=== PATIENT | male | born 1965 | race African-American/Black ===

== ENCOUNTER 2025-05-02 13:10 | Emergency (ER) | payer BC, SELFPAY ==
[2025-05-02 13:23] VITALS: BP 120/62; PULSE 66; RESP 16; TEMP 36.7; O2SAT 97
--- NOTE | 2025-05-02 13:56 | ED.GENADULT ---
HPI - General Adult General Chief complaint: Urogenital-Male Stated complaint: not able pee Time Seen by Provider: 05/02/25 14:05 Source: patient, RN notes reviewed and old records reviewed Mode of arrival: ambulatory Limitations: no limitations History of Present Illness HPI narrative: 60-year-old male presents to the [facility] with not being able to urinate that has been increasing over the last week. Has been out of his Flomax for 1 week. Requesting a refill on his Flomax Patient not able to give a specific time when he was last able to urinate. Patient has had back pain ?for ever? States that he takes street drugs to help manage his pain. Requesting that we order him a back brace. Denies any new injury Walks with a normal gait Patient denies having a primary care provider states his care usually comes from [facility]. Treatments prior to arrival: other (street drugs) Related Data Allergies Allergy/AdvReac Type Severity Reaction Status Date / Time Penicillins Allergy Mild Rash Verified 05/02/25 14:13 Review of Systems Review of Systems: All systems reviewed & are unremarkable except as noted in HPI and below Constitutional: Constitutional: Reports no additional constitutional complaints Cardiovascular: Cardiovascular: Reports no additional cardiovascular complaints, Denies chest pain and Denies dyspnea Respiratory: Respiratory: Reports no additional respiratory complaints, Denies chest congestion, Denies cough and Denies dyspnea Gastrointestinal: Gastrointestinal: Reports no additional gastrointestinal complaints and Denies abdominal pain Genitourinary: Genitourinary: Reports as per HPI and Reports other (unable to urinate) Musculoskeletal: Musculoskeletal: Reports as per HPI and Reports back pain (bilateral lower) Integumentary/Breasts: Skin/Breast: Reports system reviewed and no additional complaints, except as docu PMFSH Past Medical History Medical History (Updated 05/02/25 @ 14:49 by Albertina Lowery APRN) Left leg injury Orthopedic surgery Surgical History Surgical History (Updated 05/02/25 @ 14:49 by Albertina Lowery APRN) History of appendectomy Comments At the time of my signature, I reviewed and agree with the nursing past medical, surgical, social, and family history. There is no relevant family history pertinent to the patient complaint. Exam Const: General: cooperative, no acute distress, well developed, alert, uncomfortable and well nourished Nutritional Appearance: well nourished Orientation/consciousness: patient oriented x3 Limitations: no limitations HENMT: Head: normal to inspection Mouth: Yes Normal oral and palatal mucosa present, Yes lip normal, Yes tongue normal and Yes moist mucous membranes Eyes: General: appearance normal, both eyes and all related structures Alignment and Position: alignment normal Neck: Neck: normal visual inspection, full ROM, no lymphadenopathy and no meningeal signs Chest: Chest palpation & inspection: normal inspection of the chest Resp: Effort & Inspection: normal respiratory effort and able to speak in complete sentences Cardio: Rate: regular rate GI: GI Palp: No abdominal tenderness : General: Yes no CVA tenderness Back/Spine/Pelvis: Back: back tenderness (Low lumbar generalized) Skin: General skin exam: normal color Neuro: General: patient oriented x3, gait normal, moves all extremities and no meningeal signs Cognition (Neuro): normal cognition Speech: normal speech Gait exam (Neuro): Normal gait present Extrem: General: normal to inspection, full ROM, capillary refill normal and normal gait Psych: Appearance: grossly normal and well kempt Mental Status: mental status grossly normal Speech and movement: Normal speech and movement present and Clear speech present Affect: normal affect Attitude: cooperative Course Course Level of Care: Express Care Visit Vital Signs Vital signs: Vital Signs Temperature 98.0 F 05/02/25 13:23 Pulse Rate 66 05/02/25 13:23 Respiratory Rate 16 05/02/25 13:23 Blood Pressure 120/62 05/02/25 13:23 Pulse Oximetry 97 05/02/25 13:23 Oxygen Delivery Room Air 05/02/25 13:23 Temperature 98.0 F 05/02/25 13:23 Pulse Rate 66 05/02/25 13:23 Respiratory Rate 16 05/02/25 13:23 Blood Pressure 120/62 05/02/25 13:23 Pulse Oximetry 97 05/02/25 13:23 Oxygen Delivery Room Air 05/02/25 13:23 Reviewed Medical Decision Making MDM Narrative Medical decision making narrative: Patient sitting in exam room. Patient is nontoxic, vitals stable. Patient is requesting refill on his Flomax. Requested patient to give a urine sample, unable to do so. Patient also with chronic back issues, requesting a back brace. Explained that we do not give back braces. Denies any new injury. Patient is unable to give a urine sample. Patient states I am just going to go to the ER and walked out Some parts of this dictation were generated by voice recognition software and may contain typographical and/or grammatical inaccuracies. Differential Diagnosis Differential Diagnosis: Enlarged prostate, chronic abdominal pain, chronic back pain, Medical Records Medical records reviewed: Yes I reviewed the external patient's medical records. Vital Signs Vital Signs: Vital Signs Temperature 98.0 F 05/02/25 13:23 Pulse Rate 66 05/02/25 13:23 Respiratory Rate 16 05/02/25 13:23 Blood Pressure 120/62 05/02/25 13:23 Pulse Oximetry 97 05/02/25 13:23 Oxygen Delivery Room Air 05/02/25 13:23 Temperature 98.0 F 05/02/25 13:23 Pulse Rate 66 05/02/25 13:23 Respiratory Rate 16 05/02/25 13:23 Blood Pressure 120/62 05/02/25 13:23 Pulse Oximetry 97 05/02/25 13:23 Oxygen Delivery Room Air 05/02/25 13:23 Reviewed Lab Data Lab results reviewed: Yes I reviewed the patient's lab results. Labs: Reviewed Critical Care Time Critical Care Time Critical Care Time: No Discharge Plan Discharge Clinical Impression: Medication refill Chronic back pain Qualifiers: Back pain location: low back pain Back pain laterality: bilateral Sciatica presence: with sciatica Sciatica laterality: sciatica of right side Qualified Code(s): G89.29 - Other chronic pain Patient Disposition: Elopement After Seen by Prov Instructions: Antibiotic Form, Urinary Retention in Men (ED), Chronic Back Pain (DC) Additional Instructions: Most important part of your care is following up with a primary care provider as soon as possible. Take Tylenol alternating with Motrin as needed for pain Exercise:Combine aerobic exercise, like walking or swimming, with specific exercises to keep the muscles in your back and abdomen strong and flexible. Proper Lifting:Be sure to lift heavy items with your legs, not your back. Do not bend over to pick something up. Keep your back straight and bend at your knees. Weight:Maintain a healthy weight. Being overweight puts added stress on your lower back. Avoid Smoking:Both the smoke and the nicotine cause your spine to age faster than normal. Proper Posture:Good posture is important for avoiding future problems. A therapist can teach you how to safely stand, sit, and lift. Use warm moist heat to help with pain. Using topical such as Biofreeze, Kristian-Early or Aspercreme can also help Follow up with Primary provider in 2-3 days, This may become a chronic condition and they will be the one to help manage your pain and order additional testing. Go to the nearest ER if you develop problems with bladder/bowel function, weakness or loss of feeling in one or both of your legs. Patient Language: Maori Follow-up/Referrals: PHYSICIAN,VOCATIONAL EVALUATOR [Primary Care Provider, Internal Medicine]
== END 2025-05-02 14:35 | disposition left against medical advice (07) ==
PROVIDERS: Emergency Provider Nurse Practitioner
DX: Z76.0 Encounter for issue of repeat prescription (principal); G89.29 Other chronic pain; M54.42 Lumbago with sciatica, left side
CPT/HCPCS: 99202; G0463